=== PATIENT | male | born 1965 ===

== ENCOUNTER 2017-12-30 16:15 | Emergency (ER) | payer OTHER ==
[2017-12-30 16:20] VITALS: PULSE 77; RESP 18; TEMP 98.1
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
[2017-12-30] MEDS ORDERED: Sodium Chloride 0.9% 1,000 ML IV STA ×2 (17:17→19:06)
[2017-12-30 17:50] LABS: BASO # 0.1 K/uL (0.0-0.2); BASO % 0.8 % (0.0-2.0); EOS # 0.2 K/uL (0.0-0.7); EOS % 3.5 % (0.0-4.0); HEMOGLOBIN 11.8 g/dL (12.0-18.0); LYMPH # 2.4 K/uL (1.0-4.3); LYMPH % 36.1 % (20.0-40.0); MEAN CELL VOLUME 84.1 fl (80.0-94.0); MEAN CORPUSCULAR HEMOGLOBIN 27.8 pg (27.0-31.0); MEAN PLATELET VOLUME 7.3 fl (7.2-11.7); MONO # 0.4 K/uL (0.0-0.8); NEUT # 3.6 K/uL (1.8-7.0); NEUT % 53.6 % (50.0-75.0); RBC 4.27 Mil/uL (4.40-5.90); RED CELL DISTRIBUTION WIDTH 16.3 % (11.5-14.5); WHITE BLOOD COUNT 6.7 K/uL (4.8-10.8)
[2017-12-30] MEDS ORDERED: Iohexol 300 100 ML IJ ONE (18:43)
[2017-12-30] MEDS ORDERED: Sodium Chloride 0.9% 100 ML ONE (18:43)
[2017-12-30 18:55] LABS: ALB/GLOB RATIO 1.1 (1.0-2.1); ALBUMIN 4.3 g/dL (3.5-5.0); ALT/SGPT 31 U/L (21-72); AST/SGOT 47 U/L (17-59); BLOOD UREA NITROGEN 11 mg/dl (9-20); CALCIUM 9.1 mg/dL (8.4-10.2); GFR AFRICAN-AMERICAN > 60; GFR NON-AFRICAN AMERICAN > 60
[2017-12-30 20:04] LABS: BARBITURATES, UR NEGATIVE (NEGATIVE); BENZODIAZEPINES, UR NEGATIVE (NEGATIVE); OPIATES, UR NEGATIVE (NEGATIVE); PHENCYCLIDINE, UR NEGATIVE (NEGATIVE)
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
[2017-12-30 21:46] VITALS: BP 120/86; O2SAT 100
--- NOTE | 2017-12-31 09:39 | RAD ---
PROCEDURE: Cervical Spine Radiographs. HISTORY: Pain. COMPARISON: None. FINDINGS: BONES: Alignment maintained. No fracture. Dens Intact. Minimal spondylosis C5 and C6 levels. Generalized osteopenia noted DISC SPACES: Mild C6-7 disc space narrow SOFT TISSUES: Normal. No prevertebral soft tissue swelling. OTHER FINDINGS: None. IMPRESSION: No fracture or lytic lesion. Mild degenerative changes. Osteopenia
--- NOTE | 2017-12-31 10:58 | RAD ---
PROCEDURE: Radiographs of the Right Shoulder HISTORY: trauma COMPARISON: Prior right shoulder radiographs 06/16/2011. FINDINGS: BONES: No acute fracture or destructive bony lesion identified. However, there is a rounded calcifications seen in the region of the subacromial space and there is gross osteophyte development noted at the inferior margins of the glenoid rim in this patient with a prior dislocation of the right shoulder in 2010. Increase in acromioclavicular joint degenerative changes are seen, including osteophytosis. No subluxation, separation or dislocation appreciable. JOINTS: As above. SOFT TISSUES: As above. OTHER FINDINGS: None. IMPRESSION: Advanced osteoarthritis in the glenohumeral joint and is moderate at the acromioclavicular joint with calcific tendinosis suggested at the rotator cuff region versus subacromial bursa calcification. Follow-up MRI may be useful for further characterization as clinically warranted.
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
== END 2017-12-30 21:46 | disposition home or self-care (01) ==
LOC: H.ER 16:15
DX: S20.219A Contusion of unspecified front wall of thorax, initial encounter (principal); S30.1XXA Contusion of abdominal wall, initial encounter; S43.401A Unspecified sprain of right shoulder joint, initial encounter; V03.10XA Pedestrian on foot injured in collision with car, pick-up truck or van in traffic accident, initial encounter; Y92.410 Unspecified street and highway as the place of occurrence of the external cause; M17.11 Unilateral primary osteoarthritis, right knee; M85.80 Other specified disorders of bone density and structure, unspecified site
CPT/HCPCS: 71260; 72040; 73030; 73562; 74177; 80053; 85025; 99284; G0480; J7040; Q9967